=== PATIENT | male | born 2000 | race Caucasian/White ===

== ENCOUNTER 2024-08-22 21:20 | Emergency (ER) | payer BC ==
[~2024-08-22] VITALS: Ht 170.2 cm; Wt 65.9 kg
[2024-08-22 21:28] VITALS: TEMP 97.8
[2024-08-22] MEDS ORDERED: LIDOCAINE 1% 10 ML VIAL ID ONE (23:45)
[2024-08-23 00:03] VITALS: BP 135/84; PULSE 80; RESP 20; O2SAT 98
== END 2024-08-23 00:08 | disposition home or self-care (01) ==
LOC: EMS 21:22
DX: S01.21XA Laceration without foreign body of nose, initial encounter (principal); I10 Essential (primary) hypertension; X58.XXXA Exposure to other specified factors, initial encounter; Y93.66 Activity, soccer; Y92.89 Other specified places as the place of occurrence of the external cause; Y99.8 Other external cause status
CPT/HCPCS: 12011; 99282; Z7502